=== PATIENT | male | born 1980 | race Caucasian/White ===

== ENCOUNTER → 2021-08-13 14:25 | Outpatient (CLI) | payer BC, SELFPAY ==
--- NOTE | 2021-08-13 14:28 | CT_ITS ---
EXAM: CT PELVIS WITH INTRAVENOUS CONTRAST CLINICAL INDICATION: left groin pain hernia TECHNIQUE: Helically acquired images were obtained of the pelvis with intravenous contrast. This CT exam was performed using one or more of the following dose reduction techniques: automated exposure control, adjustment of the mA and/or kV according to patient size, and/or use of iterative reconstruction technique. This report was created using [employer] report generation technology. CONTRAST: Oral and IV Readi-CAT and 100mL Isovue-370 COMPARISON: None. FINDINGS: BOWEL: Unremarkable as visualized. No bowel distention. No focal inflammatory change. APPENDIX: The appendix is visualized and is normal. INTRAPERITONEAL SPACE: In the left hemipelvis, there is a cystic area that is 19 x 13 mm in size. se 2 IM: 48. This may be a mesenteric cyst. No ascites or other fluid collection. No free air. 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 REPRODUCTIVE: There are bilateral vasectomy clips. BONES/JOINTS: Unremarkable. No suspicious lytic or blastic abnormality. SOFT TISSUES: There is an umbilical hernia containing fat. There is no bowel involvement. There is no incarceration. There is no findings suggesting that this is causing a bowel obstruction. LYMPH NODES: Prominent inguinal lymph nodes. CT/Pelvis WITH IV Contrast IMPRESSION: 1. Inguinal lymphadenopathy. No inguinal hernia. 2. 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 Electronically Signed: Min Long MD at 17:53 EST , Service support ,
== END ==
PROVIDERS: PCP Family Medicine; Referring Provider Surgery; Visit Provider Surgery
DX: R10.32 Left lower quadrant pain (principal)
CPT/HCPCS: 72193; Q9967